=== PATIENT | female | born 1955 | race Caucasian/White ===

== ENCOUNTER → 2020-03-26 | Outpatient (CLI) | payer MEDICARE ==
[~2020-03-26] MED LIST: ATOR20TA37 PO; BACL-19 PO; CETI-158 PO; DENO60DI INJ; METO10TA2 PO; Metoclopramide PO; fioricet PO
[2020-03-26 15:34] LABS: INTERNATIONAL NORMALIZED RATIO 1.01 (0.93-1.1); PROTHROMBIN TIME 10.7 Seconds (9.6-11.5)
[2020-03-26 15:40] LABS: BASOPHILS % (AUTO) 1 % (0-1); EOSINOPHILS % (AUTO) 4 % (1-7); LYMPHOCYTES % (AUTO) 28 % (22-44); MEAN CORPUSCULAR HGB CONC 33.1 g/dL (32.4-35.8); MEAN PLATELET VOLUME 8.7 fL (7.4-10.4); MONOCYTES % (AUTO) 5 % (2-9); NEUTROPHILS % (AUTO) 62 % (42-75); PLATELET COUNT 233 x10^3/uL (130-400); RED BLOOD COUNT 4.53 x10^6/uL (3.82-5.3); RED CELL DISTRIBUTION WIDTH 12.8 % (9.6-15.2)
[2020-03-26 15:43] LABS: MD NO
[2020-03-26 15:49] LABS: ANION GAP 5 mmol/L (5-15); CALCIUM 9.2 mg/dL (8.5-10.1); CHLORIDE 109 mmol/L (98-107); CREATININE 0.82 mg/dL (0.55-1.02)
== END | disposition home or self-care (01) ==
LOC: STAR 13:26
PROVIDERS: ATTEND Neurological Surgery
DX: Z01.812 Encounter for preprocedural laboratory examination (principal); Z20.828 Contact with and (suspected) exposure to other viral communicable diseases; M79.659 Pain in unspecified thigh
CPT/HCPCS: 80048; 85025; 85610; 85730; 87635; 93005

== ENCOUNTER 2020-03-31 05:39 | Day surgery (SDC) | payer MEDICARE ==
[~2020-03-31] VITALS: Ht 162.6 cm; Wt 60.6 kg
[2020-03-31 06:13] VITALS: BP 116/73
[2020-03-31] MEDS ORDERED: LACTATED RINGERS 1,000 ML IV SCH (06:15)
[2020-03-31] MEDS ORDERED: CHLORHEXIDINE 15 ML UDC MM STA (06:15)
[2020-03-31] MEDS ORDERED: CHLORHEXIDINE 15 ML UDC ONE (06:17)
[2020-03-31] MEDS ORDERED: BUPIVACAINE/PF 0.5% ONE (06:30)
[2020-03-31] MEDS ORDERED: EPINEPHRINE 1 MG/ML, 1ML ONE (06:30)
[2020-03-31] MEDS ORDERED: BACITRACIN 50,000 UNIT ONE (06:32)
[2020-03-31] MEDS ORDERED: FENTANYL PF 250 MCG/5ML ONE (07:22)
[2020-03-31] MEDS ORDERED: LIDOCAINE GEL 2%, 5ML ONE (07:25)
[2020-03-31] MEDS ORDERED: MEPERIDINE/PF 25MG/0.5ML IVPush PRN (07:30)
[2020-03-31] MEDS ORDERED: HYDROmorphone 1 MG/ML, 1ML INJ IVPush PRN (07:30)
[2020-03-31] MEDS ORDERED: LABETALOL 5MG/ML, 20ML IV PRN (07:30)
[2020-03-31] MEDS ORDERED: DIPHENHYDRAMINE 50 MG/ML, 1ML IVPush PRN (07:30)
[2020-03-31] MEDS ORDERED: PROMETHAZINE 25 MG/ML, 1ML IVPush PRN (07:30)
[2020-03-31] MEDS ORDERED: FENTANYL PF 100 MCG/2ML IV PRN (07:30)
[2020-03-31] MEDS ORDERED: HALOPERIDOL 5 MG/ML IV PRN (07:30)
[2020-03-31] MEDS ORDERED: OXYcodone 5 MG/5 ML ORAL.SOL UDC PO PRN (07:30)
[2020-03-31] MEDS ORDERED: hydrALAzine 20 MG/ML, 1ML IV PRN (07:30)
[2020-03-31] MEDS ORDERED: ROCURONIUM 10MG/ML,5ML ONE (09:22)
[2020-03-31] MEDS ORDERED: PROPOFOL 10 MG/ML, 20ML ONE (09:22)
[2020-03-31] MEDS ORDERED: CEFAZOLIN 1,000 MG ONE (09:22)
[2020-03-31] MEDS ORDERED: ONDANSETRON 2MG/ML, 2ML ONE (09:22)
[2020-03-31] MEDS ORDERED: SUCCINYLCHOLINE 20 MG/ML, 10ML ONE (09:22)
[2020-03-31] MEDS ORDERED: DEXAMETHASONE 4 MG/ML, 1ML ONE (09:22)
[2020-03-31] MEDS ORDERED: NEOSTIGMINE 1 MG/ML, 10ML ONE (09:22)
[2020-03-31] MEDS ORDERED: GLYCOPYRROLATE 0.2MG/1ML, 5ML ONE (09:22)
[2020-03-31] MEDS ORDERED: PROMETHAZINE 25 MG/ML, 1ML ONE (09:59)
[2020-03-31] MEDS ORDERED: HALOPERIDOL 5 MG/ML ONE (10:35)
== END 2020-03-31 12:10 | disposition home or self-care (01) ==
LOC: OUT 05:39
PROVIDERS: ATTEND Neurological Surgery
DX: G57.12 Meralgia paresthetica, left lower limb (principal); G57.22 Lesion of femoral nerve, left lower limb; E78.5 Hyperlipidemia, unspecified; M81.0 Age-related osteoporosis without current pathological fracture; Z79.1 Long term (current) use of non-steroidal anti-inflammatories (NSAID); Z79.899 Other long term (current) drug therapy; Z87.891 Personal history of nicotine dependence; Z88.0 Allergy status to penicillin; Z88.5 Allergy status to narcotic agent; Z96.642 Presence of left artificial hip joint; Z82.61 Family history of arthritis; Z82.49 Family history of ischemic heart disease and other diseases of the circulatory system
CPT/HCPCS: 64714; J0171; J0330; J0690; J1100; J1630; J2405; J2550; J2704; J3010; J7120; J2710